=== PATIENT | male | born 1985 ===

== ENCOUNTER 2017-11-02 20:33 | Emergency (ER) | payer OTHER ==
[2017-11-02 21:00] VITALS: BP 97/67
--- NOTE | 2017-11-02 21:49 | UC ---
Abdominal Pain Male HPI - HPI Summary HPI Summary: c/o chills, fever, abdominal pain and diarrhea for several days. Denies foreign travel or household members with similar symptoms, denies changes in diet. States he has been on PREP for 2 months and is very compliant with medication every day. Denies nausea and vomiting and states he is actually very hungry at this point. He states BM are not bloody, mucus, or melena - History of Current Complaint Chief Complaint: UCGI Stated Complaint: CHILLS, STOMACH PAIN, DIARRHEA Time Seen by Provider: 11/02/17 21:25 Hx Obtained From: Patient Onset/Duration: Gradual Onset, Lasting Days Timing: Intermittent Episodes Lasting: Severity Initially: Moderate Severity Currently: Moderate Pain Intensity: 7 Location: Diffuse Character: Unable to describe Aggravating Factor(s): Nothing Alleviating Factor(s): Other - bm Associated Signs And Symptoms: Positive: Fever, Diarrhea - Risk Factors Testicular Torsion: Negative Cardiac Risk Factors: Negative - Allergies/Home Medications Allergies/Adverse Reactions: Allergies Allergy/AdvReac Type Severity Reaction Status Date / Time No Known Allergies Allergy Verified 11/02/17 20:53 Home Medications: Home Medications Tenofovir/Emtricitab 100/150NF [Truvada 100 mg-150 mg Tablet] 1 mg PO DAILY [History Confirmed 11/02/17] PMH/Surg Hx/FS Hx/Imm Hx Previously Healthy: Yes - Surgical History Surgical History: None Surgery Procedure, Year, and Place: denies - Social History Alcohol Use: Occasionally Substance Use Type: None Smoking Status (MU): Never Smoked Tobacco Review of Systems Constitutional: Fever Gastrointestinal: Abdominal Pain, Diarrhea All Other Systems Reviewed And Are Negative: Yes Physical Exam Triage Information Reviewed: Yes Appearance: Well-Appearing, No Pain Distress, Well-Nourished Vital Signs: Initial Vital Signs Temp 99.6 F 11/02/17 20:47 Pulse 113 11/02/17 20:47 Resp 20 11/02/17 20:47 BP 97/67 11/02/17 20:47 Pulse Ox 98 11/02/17 20:47 Vital Signs Reviewed: Yes Eyes: Positive: Conjunctiva Clear ENT: Positive: Hearing grossly normal, Pharynx normal Neck: Positive: Supple, Nontender, No Lymphadenopathy Respiratory: Positive: Chest non-tender, Lungs clear, Normal breath sounds, No respiratory distress Cardiovascular: Positive: RRR, No Murmur, Pulses Normal Abdomen Description: Positive: Nontender, No Organomegaly, Soft Bowel Sounds: Positive: Present Musculoskeletal: Positive: Strength Intact, ROM Intact, No Edema Neurological: Positive: Alert, Muscle Tone Normal Abd Pain Male Course/Dx - Course Course Of Treatment: viral gastroenteritis, continue oral hydration and normal diet, abstain from caffeine and excess dairy, discussed with patient signs of dehydration, and f/u PCP and ER if he cannot tolerate PO hydration. Patient states he is actually very hungry - Differential Dx/Clinical Impression Provider Diagnoses: viral gastroenteritis Discharge - Sign-Out/Discharge Documenting (check all that apply): Discharge/Admit/Transfer - Discharge Plan Condition: Good Disposition: HOME Patient Education Materials: Gastroenteritis (ED), Acetaminophen (By mouth), Liquids and Hydration for Athletes (ED), Electrolyte Supplement (By mouth) Referrals: Dre Carpenter HAND WORKER [Primary Care Provider] - - Billing Disposition and Condition Condition: GOOD Disposition: Home
== END 2017-11-02 22:25 | disposition home or self-care (01) ==
LOC: UCEAST 20:33
DX: A08.4 Viral intestinal infection, unspecified (principal)
CPT/HCPCS: 99211; G0463